=== PATIENT | female | born 1980 | race Caucasian/White ===

== ENCOUNTER 2020-11-14 12:18 | Emergency (ER) | payer OTHER ==
[~2020-11-14] VITALS: Ht 160 cm; Wt 81.6 kg
--- NOTE | 2020-11-14 12:18 | NUR ---
PT BROUGHT TO BED 8 VIA [facility]
[2020-11-14 12:22] VITALS: BP 123/69
--- NOTE | 2020-11-14 12:50 | NUR ---
40/F BIBA from urgent care with c/o chest pressure radiating to back and left arm for 2 weeks. Patient states pain worsened today and she went to urgent care where she received an EKG, EMS states staff called 911 after EKG results. Patient states pain is intermittent 6/10 dull pain, denies pain at this time. States she took Aspirin at home with mild relief. Patient denies fever, chills, cough, nausea, sob or vomiting. Patient placed in gown on bedside library monitor, Dr. Reyes aware of patient.
[2020-11-14] MEDS: KETOROLAC 60 MG/2 ML VIAL IM ONE (13:02)
[2020-11-14] MEDS ORDERED: IBUP-2213 PO (13:06)
[2020-11-14 13:30] VITALS: BP 136/85
--- NOTE | 2020-11-14 13:30 | NUR ---
Patient discharged with v/s stable. Written and verbal after care instructions given and explained in irish by myself. Patient alert, oriented and verbalized understanding of instructions. Ambulatory with steady gait. All questions addressed prior to discharge. ID band removed. Patient advised to follow up with PMD. Rx of Ibuprofen electronically faxed to pt's preferred pharmacy. Patient educated on indication of medication including possible reaction and side effects. Opportunity to ask questions provided and answered.
== END 2020-11-14 13:30 | disposition home or self-care (01) ==
LOC: MED 12:18
DX: R07.9 Chest pain, unspecified (principal); M54.9 Dorsalgia, unspecified; M79.10 Myalgia, unspecified site
CPT/HCPCS: 93005; 96372; 99283; J1885